=== PATIENT | male | born 1945 | race Caucasian/White ===

== ENCOUNTER 2018-01-06 08:34 | Day surgery (SDC) | payer MEDICARE ==
[2018-01-06 10:13] VITALS: BMI 29.2
[2018-01-06] MEDS ORDERED: Lactated Ringer's 1,000 ML IV ONE (10:16)
[2018-01-06] MEDS ORDERED: Midazolam 2 MG/2 ML VIAL ONE (11:11)
[2018-01-06] MEDS ORDERED: Propofol 10 mg/ml Inj (20 ML) ONE (11:12)
[2018-01-06 12:26] VITALS: BP 115/72; PULSE 81; RESP 16; TEMP 96.8; O2SAT 99
== END 2018-01-06 13:10 | disposition home or self-care (01) ==
LOC: H.ENDO 08:34
PROVIDERS: ATTEND Internal Medicine Gastroenterology
DX: Z12.11 Encounter for screening for malignant neoplasm of colon (principal); E78.5 Hyperlipidemia, unspecified; N40.0 Benign prostatic hyperplasia without lower urinary tract symptoms; K64.8 Other hemorrhoids
CPT/HCPCS: 45378; J2250; J2704; J7120